=== PATIENT | female | born 1980 | race African-American/Black ===

== ENCOUNTER → 2017-10-13 | Day surgery (SDC) | payer OTHER ==
[~2017-10-13] VITALS: Ht 165.1 cm; Wt 93.0 kg
[~2017-10-13] MED LIST: HYDROCHLOROTHIA25 M1 PO
[2017-10-13 09:19] LABS: ABSOLUTE BASOPHIL COUNT 0 /CUMM (0.0-0.2); ABSOLUTE EOSINOPHIL COUNT 0.2 /CUMM (0.0-0.7); ABSOLUTE GRANULOCYTE CT 3.8 /CUMM (1.4-6.5); ABSOLUTE MONOCYTE COUNT 0.5 /CUMM (0.10-0.60); BASOPHIL % 0.1 % (0.0-2.0); EOSINOPHIL % 2.8 % (0-5); GRANULOCYTE % 58.5 % (42.2-75.2); HEMATOCRIT 25.8 % (37-47); MEAN CORPUSCULAR HGB 20.6 PG (27.0-31.0); MEAN CORPUSCULAR HGB CONC 30.9 G/DL (33.0-37.0); MEAN CORPUSCULAR VOLUME 66.7 FL (81.0-99.0); MEAN PLATELET VOLUME 6.3 FL (7.4-10.4); PLATELET COUNT 524 /CUMM (130-400); RBC DISTRIBUTION WIDTH 20.5 % (11.5-14.5); RED BLOOD CELL CT 3.87 /CUMM (4.20-5.40); WHITE BLOOD CELL COUNT 6.4 /CUMM (4.8-10.8)
--- NOTE | 2017-10-13 13:21 | Operative Report ---
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 After the induction of anesthesia second timeout was done patient was placed in low stirrups examination under anesthesia was performed a speculum was placed in the vagina the anterior lip of the cervix was grasped with a single-tooth tenaculum. The endocervical canal was dilated and a hysteroscope was introduced noting normal findings photos were taken. the uterus was sounded to 10 cm the cervix was measured to be 3.5 cm the NovaSure device was therefore set 6.5 cm the NovaSure device was seated the width of the endometrial canal was noted to be 4.5 cm after testing for integrity A 38second treatment cycle was undertaken there were no complications single-tooth tenaculum was removed and the patient was moved to recovery in good condition sponge instrument and needle counts were correct 3
== END ==
LOC: STS 02:02
PROVIDERS: Obstetrics & Gynecology
DX: N92.0 Excessive and frequent menstruation with regular cycle (principal); I10 Essential (primary) hypertension; F17.200 Nicotine dependence, unspecified, uncomplicated
CPT/HCPCS: 36415; 81025; 93005; 93010; J0131; J2250